=== PATIENT | male | born 1960 | race Two or more races ===

== ENCOUNTER 2020-01-13 09:44 | Emergency (ER) | payer MEDICAID ==
[~2020-01-13] VITALS: Ht 170.2 cm; Wt 77.1 kg
[2020-01-13 09:51] VITALS: BP 151/104
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
[2020-01-13] MEDS ORDERED: Ketorolac 60mg Inj IM ONE (10:45)
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
[2020-01-13] MEDS ORDERED: ROBAXIN-750750 MG PO (12:37)
[2020-01-13] MEDS ORDERED: IBUPROFEN600 MG ORAL (12:37)
[2020-01-13 13:12] VITALS: BP 143/97
== END 2020-01-13 13:00 | disposition home or self-care (01) ==
LOC: EDBD 09:44 → EMR 10:16
DX: M79.604 Pain in right leg (principal); M54.2 Cervicalgia; R07.9 Chest pain, unspecified; M25.511 Pain in right shoulder; E11.9 Type 2 diabetes mellitus without complications; M25.549 Pain in joints of unspecified hand; M79.639 Pain in unspecified forearm
CPT/HCPCS: 71045; 72040; 72070; 73090; 73590; 96372; Z7502; 99284